=== PATIENT | male | born 1960 | race Caucasian/White ===

== ENCOUNTER 2020-02-06 21:33 | Emergency (ER) | payer OTHER ==
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
[2020-02-06] MEDS ORDERED: Bacitracin Oint 1 GM U/D Packet TOP ONE (22:45)
[2020-02-06] MEDS ORDERED: Lidocaine 1% 20 ML MDV INJECT ONE (22:45)
[2020-02-06] MEDS ORDERED: Diphtheria,Pertussis(Acell),Tetanus Vaccine 0.5 ML SDV IM ONE (22:48)
--- NOTE | 2020-02-09 09:44 | CR ---
Nasal Bone Min 3V CLINICAL HISTORY: Injury FINDINGS: There are comminuted fractures of the nasal bones with slight displacement. Anterior nasal spine appears intact. There are no air-fluid levels in the sinuses. There is rightward deviation of the nasal septum. IMPRESSION: Displaced nasal bone fractures
== END 2020-02-07 00:12 | disposition home or self-care (01) ==
LOC: JP.ED 21:33
DX: S02.2XXB Fracture of nasal bones, initial encounter for open fracture (principal); Z79.899 Other long term (current) drug therapy; Z23 Encounter for immunization; W50.0XXA Accidental hit or strike by another person, initial encounter
CPT/HCPCS: 12011; 70160; 90471; 90715; 99283; J2001